=== PATIENT | female | born 1990 | race Hispanic/Latino ===

== ENCOUNTER 2018-05-15 13:03 | Emergency (ER) | payer BC ==
[2018-05-15 13:33] VITALS: RESP 18; O2SAT 99
--- NOTE | 2018-05-15 13:49 | ED PDOC ---
Arrival/HPI - General Chief Complaint: Abdominal Pain Time Seen by Provider: 05/15/18 13:04 Historian: Patient - History of Present Illness Narrative History of Present Illness (Text): 05/15/18 14:05 27 y/o female with PMH of PCOS presents to the ED sent by urgent care c/o lower abdominal pain and nausea x 1 day. Yesterday, patient had acute onset of sharp pain that radiates across the lower abdomen. Took tylenol last night without relief. Pt was seen in urgent care today and sent here to rule out abdominal pathology. Currently menstruating. Denies fever, chills, back pain, vaginal odor/itching/discharge, urinary symptoms, headache, vomiting, diarrhea, dizziness, vision changes, numbness, weakness, paresthesias, chest pain, SOB, cough, or any other associated symptoms. Past Medical History - Provider Review Nursing Documentation Reviewed: Yes - Infectious Disease Hx of Infectious Diseases: None - Reproductive Menopause: No - Cardiac Hx Cardiac Disorders: No - Pulmonary Hx Respiratory Disorders: No - Neurological Hx Neurological Disorder: No - Hematological/Oncological Hx Blood Disorders: No - Musculoskeletal/Rheumatological Hx Musculoskeletal Disorders: No - Psychiatric Hx Substance Use: No - Anesthesia Hx Anesthesia: No Family/Social History - Physician Review Nursing Documentation Reviewed: Yes Family/Social History: No Known Family HX Smoking Status: Unknown If Ever Smoked Hx Alcohol Use: No Hx Substance Use: No Allergies/Home Meds Allergies/Adverse Reactions: Allergies No Known Allergies Allergy (Verified 05/15/18 13:47) Review of Systems - Physician Review All systems were reviewed & negative as marked: Yes - Review of Systems Constitutional: Normal. absent: Fatigue, Fevers Eyes: Normal. absent: Vision Changes, Photophobia ENT: Normal. absent: Sore Throat, Sinus Congestion Respiratory: Normal. absent: SOB, Cough Cardiovascular: Normal. absent: Chest Pain, Palpitations, Syncope Gastrointestinal: Abdominal Pain, Nausea, Vomiting, Appetite Changes. absent: Stool Changes, Constipation, Diarrhea Genitourinary Female: Vaginal Bleeding (menstruating). absent: Dysuria, Frequency, Hematuria Musculoskeletal: Normal. absent: Arthralgias, Back Pain, Neck Pain Skin: Normal. absent: Rash Neurological: Normal. absent: Headache, Dizziness, Focal Weakness, Speech Changes, Disequilibrium Endocrine: Normal Hemo/Lymphatic: Normal Psychiatric: Normal Physical Exam Vital Signs Reviewed: Yes Vital Signs Temp Pulse Resp BP Pulse Ox 05/15/18 13:24 99.3 F 102 H 18 104/71 99 Temp Pulse Resp BP Pulse Ox 97.8 F 81 18 102/60 99 05/15/18 17:58 05/15/18 17:58 05/15/18 17:58 05/15/18 17:58 05/15/18 17:58 Temperature: Afebrile Blood Pressure: Normal Pulse: Tachycardic Respiratory Rate: Normal Appearance: Positive for: Well-Appearing, Non-Toxic, Comfortable Pain Distress: None Mental Status: Positive for: Alert and Oriented X 3 - Systems Exam Head: Present: Atraumatic, Normocephalic Pupils: Present: PERRL Extroacular Muscles: Present: EOMI Conjunctiva: Present: Normal Mouth: Present: Moist Mucous Membranes Pharnyx: Present: Normal. No: ERYTHEMA, EXUDATE, TONSILS ENLARGED Nose (External): Present: Atraumatic Nose (Internal): Present: Normal Inspection Neck: Present: Normal Range of Motion. No: Meningeal Signs Respiratory/Chest: Present: Clear to Auscultation, Good Air Exchange. No: Respiratory Distress, Accessory Muscle Use Cardiovascular: Present: Regular Rate and Rhythm, Normal S1, S2, Peripheal Pulses Present. No: Murmurs Abdomen: Present: Tenderness (RLQ, Suprapubic, LLQ), Normal Bowel Sounds, Guarding. No: Distention, Peritoneal Signs, Rebound Back: Present: Normal Inspection. No: CVA Tenderness Upper Extremity: Present: Normal Inspection, NORMAL PULSES, Neurovascularly Intact, Capillary Refill < 2s. No: Cyanosis, Edema, Tenderness, Swelling, Temperature Abnormalties Lower Extremity: Present: Normal Inspection, NORMAL PULSES, Normal ROM, Neurovascularly Intact, Capillary Refill < 2 s. No: Edema, Temperature Abnormalties Neurological: Present: GCS=15, CN II-XII Intact, Speech Normal Skin: Present: Warm, Dry, Normal Color. No: Rashes Psychiatric: Present: Alert, Oriented x 3, Normal Insight, Normal Concentration, Normal Affect, Normal Mood Medical Decision Making ED Course and Treatment: 05/15/18 13:46 Initial Plan: * CBC, CMP * Coags * UA, culture * Lipase * CXR * CT Abd/Pelvis with IV contrast * Transvaginal Ultrasound * IVF * Pepcid * Zofran * Toradol * Reassess and Disposition 16:08 On reassessment, patient feels better, reports significant improvement in pain. Bloodwork reviewed, significant for leukocytosis at 13.[address] Abd/Pelvis with IV contrast significant for Mild fat stranding and trace fluid seen adjacent to the uterus. Correlate clinically for possible PID. 16:58 Case discussed with gynecology economic development specialist Dr. Bruce Casiano, who states PID is unlikely secondary to lack of risk factors, normal pelvic ultrasound. States CT is low sensitivity for PID. States that empiric treatment consists of 250mg IM rocephin and 500mg Doxycycline [id number] for 14 days. Also recommends treatment for UTI. Pt has gynecologic followup established, and states she will followup within 2 days for reevaluation. Provided with copies of diagnostic testing. Diagnostic testing results and plan of care discussed with patient. Strict instructions given regarding prescription use, importance of followup, and signs/symptoms to return to ER including worsening abdominal pain, syncope, vomiting, fever, chills, or any other new/worsening symptoms. Pt verbalized understanding of discussion. Patient is A&Ox3, ambulating with steady gait, with vital signs stable for discharge. - RAD Interpretation Narrative RAD Interpretations (Text): 05/15/18 16:09 Transvaginal Ultrasound: FINDINGS: UTERUS: Measures 8.0 x 3.3 x 5.2 cm. Anteverted, normal in size and appearance. No fibroid or other mass lesion seen. ENDOMETRIUM: Measures 5.0 mm in diameter. Normal in appearance. CERVIX: No cervical abnormality identified. RIGHT OVARY: Measures 2.8 x 1.4 x 3.1 cm. No solid mass. Normal flow. LEFT OVARY: Measures 2.8 x 1.7 x 3.0 cm. No solid mass. Normal flow. FREE FLUID: No significant free fluid noted. OTHER FINDINGS: None. IMPRESSION: Unremarkable pelvic ultrasound. CT Abd/Pelvis: FINDINGS: LOWER THORAX: Unremarkable. LIVER: Unremarkable. No gross lesion or ductal dilatation. GALLBLADDER AND BILE DUCTS: Unremarkable. PANCREAS: Unremarkable. No gross lesion or ductal dilatation. SPLEEN: Unremarkable. ADRENALS: Unremarkable. No mass. KIDNEYS AND URETERS: Mild dilatation of the collecting system of the kidneys noted without evidence of obstructing stone. VASCULATURE: Unremarkable. No aortic aneurysm. No aortic atherosclerotic calcification or mural plaque present. BOWEL: Unremarkable. No obstruction. No gross mural thickening. APPENDIX: No CT evidence of appendicitis. PERITONEUM: Unremarkable. No free fluid. No free air. LYMPH NODES: Unremarkable. No enlarged lymph nodes. BLADDER: The urinary bladder is not distended therefore cannot be evaluated. REPRODUCTIVE: Mild fat stranding and trace fluid seen adjacent to the uterus. Correlate clinically for possible PID. BONES: No acute fracture. OTHER FINDINGS: None. IMPRESSION: No CT evidence of appendicitis. Mild fat stranding and trace fluid seen adjacent to the uterus. Correlate clinically for possible PID. Otherwise no evidence of acute pathology in the abdomen and pelvis. CXR: FINDINGS: LUNGS: The lungs are well inflated and clear. PLEURA: No pleural effusions or pneumothorax. CARDIOVASCULAR: The heart is normal in size. No aortic atherosclerotic calcifications present. OSSEOUS STRUCTURES: Within normal limits for the patient's age. VISUALIZED UPPER ABDOMEN: Normal. OTHER FINDINGS: None. IMPRESSION: No active pulmonary disease. Supervisor Slashing Department: Radiologist Disposition/Present on Arrival - Present on Arrival Any Indicators Present on Arrival: No History of DVT/PE: No History of Uncontrolled Diabetes: No Urinary Catheter: No History of Decub. Ulcer: No History Surgical Site Infection Following: None - Disposition Have Diagnosis and Disposition been Completed?: Yes Diagnosis: Abdominal pain Disposition: HOME/ ROUTINE Disposition Time: 17:40 Patient Plan: Discharge Condition: IMPROVED Discharge Instructions (ExitCare): Urinary Tract Infections in Adults, Pelvic Inflammatory Disease, Menstrual Cramps (DC) Additional Instructions: Doxycycline every 12 hours for 14 days (for PID) Macrobid every 12 hours for 7 days (for UTI) Ibuprofen every 8 hours with food as needed for pain Followup with OBGYN tomorrow Followup with primary doctor or clinic within 2 days Return to ER with any new/worsening symptoms Prescriptions: Doxycycline Hyclate 100 mg PO Q12H 14 Days #27 capsule Ibuprofen [Motrin Tab] 600 mg PO Q8 PRN #30 tab PRN Reason: Pain, Moderate (4-7) Nitrofurantoin Macrocrystals [Macrobid] 100 mg PO Q12 #13 cap Referrals: [facility] at [facility] [place] [Outside] - Follow up with primary Bruce Casiano MD [Staff Provider] - Follow up with primary Maddie Boles MD [Medical Doctor] - Follow up with primary Forms: [employer] ([place]), WORK NOTE
[2018-05-15] MEDS ORDERED: Sodium Chloride 0.9% 1,000 ML IV STA (13:57)
[2018-05-15 15:00] LABS: BASO # 0.01 K/mm3 (0.0-2.0); BASO % 0.1 % (0.0-3.0); EOS % 0.3 % (1.5-5.0); HEMOGLOBIN 12.2 g/dL (12.0-16.0); LYMPH # 2.5 (1.2-3.4); LYMPH % 18.5 % (22.0-35.0); MEAN CELL VOLUME 83.9 fl (80.0-105.0); MEAN CORPUSCULAR HEMOGLOBIN 27.7 pg (25.0-35.0); MEAN PLATELET VOLUME 8.9 fl (7.0-11.0); MONO # 0.5 (0.1-0.6); MONO % 3.7 % (1.0-6.0); RBC 4.41 10^6/uL (3.5-6.1); RED CELL DISTRIBUTION WIDTH 13.3 % (11.5-14.5); WHITE BLOOD COUNT 13.6 10^3/uL (4.5-11.0)
[2018-05-15 15:10] LABS: INR 1.31; PARTIAL THROMBOPLASTIN TIME 31.7 Seconds (26.9-38.3); PROTHROMBIN TIME 14.5 SECONDS (9.4-12.5)
[2018-05-15 15:17] LABS: ALB/GLOB RATIO 1.2 (1.1-1.8); ALT/SGPT 13 U/L (7-56); AST/SGOT 22 U/L (14-36); BLOOD UREA NITROGEN 10 mg/dL (7-21); CALCIUM 8.9 mg/dL (8.4-10.5); GFR NON-AFRICAN AMERICAN > 60; LIPASE 28 U/L (23-300)
--- NOTE | 2018-05-15 16:03 | US ---
Date of service: 05/15/2018 HISTORY: lower abdominal pain, h/o PCOS COMPARISON: None available. TECHNIQUE: Transvaginal pelvic ultrasound was performed. FINDINGS: UTERUS: Measures 8.0 x 3.3 x 5.2 cm. Anteverted, normal in size and appearance. No fibroid or other mass lesion seen. ENDOMETRIUM: Measures 5.0 mm in diameter. Normal in appearance. CERVIX: No cervical abnormality identified. RIGHT OVARY: Measures 2.8 x 1.4 x 3.1 cm. No solid mass. Normal flow. LEFT OVARY: Measures 2.8 x 1.7 x 3.0 cm. No solid mass. Normal flow. FREE FLUID: No significant free fluid noted. OTHER FINDINGS: None. IMPRESSION: Unremarkable pelvic ultrasound.
--- NOTE | 2018-05-15 16:23 | CT ---
Date of service: 05/15/2018 PROCEDURE: CT Abdomen and Pelvis with contrast HISTORY: lower abdominal pain COMPARISON: Comparison is made with the previous same-day ultrasound of the pelvis. TECHNIQUE: Contrast dose: 147 mL of Omnipaque 350 intravenously. Axial and reformatted coronal and sagittal CT images of the abdomen and pelvis were obtained after IV contrast administration. Radiation dose: Total exam DLP = 677.72 mGy-cm. This CT exam was performed using one or more of the following dose reduction techniques: Automated exposure control, adjustment of the mA and/or kV according to patient size, and/or use of iterative reconstruction technique. FINDINGS: LOWER THORAX: Unremarkable. LIVER: Unremarkable. No gross lesion or ductal dilatation. GALLBLADDER AND BILE DUCTS: Unremarkable. PANCREAS: Unremarkable. No gross lesion or ductal dilatation. SPLEEN: Unremarkable. ADRENALS: Unremarkable. No mass. KIDNEYS AND URETERS: Mild dilatation of the collecting system of the kidneys noted without evidence of obstructing stone. VASCULATURE: Unremarkable. No aortic aneurysm. No aortic atherosclerotic calcification or mural plaque present. BOWEL: Unremarkable. No obstruction. No gross mural thickening. APPENDIX: No CT evidence of appendicitis. PERITONEUM: Unremarkable. No free fluid. No free air. LYMPH NODES: Unremarkable. No enlarged lymph nodes. BLADDER: The urinary bladder is not distended therefore cannot be evaluated. REPRODUCTIVE: Mild fat stranding and trace fluid seen adjacent to the uterus. Correlate clinically for possible PID. BONES: No acute fracture. OTHER FINDINGS: None. IMPRESSION: No CT evidence of appendicitis. Mild fat stranding and trace fluid seen adjacent to the uterus. Correlate clinically for possible PID. Otherwise no evidence of acute pathology in the abdomen and pelvis.
--- NOTE | 2018-05-15 16:25 | RAD ---
Date of service: 05/15/2018 HISTORY: abdominal pain COMPARISON: No prior. FINDINGS: LUNGS: The lungs are well inflated and clear. PLEURA: No pleural effusions or pneumothorax. CARDIOVASCULAR: The heart is normal in size. No aortic atherosclerotic calcifications present. OSSEOUS STRUCTURES: Within normal limits for the patient's age. VISUALIZED UPPER ABDOMEN: Normal. OTHER FINDINGS: None. IMPRESSION: No active pulmonary disease.
[2018-05-15 16:38] LABS: PH,URINE 7.5 (4.7-8.0); URINE BILIRUBIN NEGATIVE (NEGATIVE); URINE BLOOD LARGE (NEGATIVE); URINE GLUCOSE (UA) NEGATIVE (NEGATIVE); URINE LEUKOCYTE ESTERASE SMALL Leu/uL (NEGATIVE); URINE PROTEIN 100 mg/dL (<30 mg/dL)
[2018-05-15 16:39] LABS: URINE APPEARANCE BLOODY (CLEAR); URINE COLOR RED (YELLOW)
[2018-05-15 16:42] LABS: HCG,QUALITATIVE URINE NEGATIVE (NEGATIVE); URINE RBC TNTC /hpf (0-2)
[2018-05-15 17:23] LABS: VENOUS BLOOD GAS BASE EXCESS -0.3 mmol/L (0.0-2.0); VENOUS BLOOD GAS PO2 51 mm/Hg (30-55)
[2018-05-15] MEDS ORDERED: cefTRIAXone (Rocephin) 250 mg Inj IM STA (17:40)
[2018-05-15 17:59] VITALS: BP 102/60; PULSE 81; TEMP 97.8
== END 2018-05-15 18:34 | disposition home or self-care (01) ==
LOC: ED 13:03
DX: R10.30 Lower abdominal pain, unspecified (principal); E28.2 Polycystic ovarian syndrome
CPT/HCPCS: 71045; 74177; 76830; 80053; 81001; 81025; 82803; 83690; 83735; 84703; 85025; 85610; 85730; 87040; 87086; 87491; 87591; 87804; 96361; 96372; 96374; 96375; 99283; J0696; J1885; J2405; J7030; Q9967